=== PATIENT | female | born 1970 | race Caucasian/White ===

== ENCOUNTER → 2020-05-09 | Outpatient (CLI) | payer MEDICARE | LOC: EMI 14:42 | DX: M51.16 Intervertebral disc disorders with radiculopathy, lumbar region (principal); M48.061 Spinal stenosis, lumbar region without neurogenic claudication | CPT/HCPCS: 72148 ==

== ENCOUNTER → 2020-06-19 | Outpatient (CLI) | payer MEDICARE, OTHER ==
[2020-06-20 15:12] LABS: COMPLEMENT C3, SERUM 225 mg/dL (82-167); COMPLEMENT C4, SERUM 34 mg/dL (12-38)
== END ==
LOC: LAB 10:08
PROVIDERS: Internal Medicine
DX: D68.52 Prothrombin gene mutation (principal); D89.89 Other specified disorders involving the immune mechanism, not elsewhere classified; M25.50 Pain in unspecified joint; L93.0 Discoid lupus erythematosus
CPT/HCPCS: 83520; 85652; 86140; 86160